=== PATIENT | male | born 1945 | race Caucasian/White ===

== ENCOUNTER 2018-05-08 08:07 | Day surgery (SDC) | payer MEDICARE, BC ==
[2018-05-08] MEDS ORDERED: LIDOCAINE 2% MDV (20MG/ML) 20ML VIAL IV ONE (08:08)
[2018-05-08] MEDS ORDERED: PROPOFOL 10 MG/ML VIAL IV ONE (08:08)
--- NOTE | 2018-05-09 08:50 | Operative Note ---
DATE OF SURGERY: 05/08/18 OPERATION: COLONOSCOPY with cold snare polypectomy x2. PREOPERATIVE DIAGNOSIS: History of polyps. POSTOPERATIVE DIAGNOSES: 1. Transverse colon polyps x2. 2. Fair prep. PROCEDURE: After informed consent was obtained from the patient, he was placed in the left lateral decubitus position in the endoscopy suite, sedated and monitored by the department of anesthesia. Digital rectal exam was unremarkable. A well-lubricated [id number] colonoscope was inserted into the rectum and advanced to the cecum. Preparation quality was fair. The cecum, cecal bulb, ileocecal valve, and appendiceal orifice were unremarkable. The ascending colon was also unremarkable. In the distal transverse colon there were 2 sessile polyps approximately 4 mm in diameter each removed with a cold snare. Minimal bleeding was noted at the site. Remainder of the transverse colon, descending colon, sigmoid colon, and rectum were otherwise unremarkable. J-turn views of the anorectum were unrevealing. The endoscope was straightened, the rectal ampulla deflated, and the endoscope was removed. RECOMMENDATIONS: The patient should resume his medications and diet. I recommend a repeat exam in 3 years based on the prep quality. As always, thank you for allowing me to participate in the healthcare of your patients. CC: CONCHIS Mata
== END 2018-05-08 09:25 | disposition home or self-care (01) ==
LOC: HOP 08:07
PROVIDERS: ATTEND Internal Medicine Gastroenterology
DX: Z12.11 Encounter for screening for malignant neoplasm of colon (principal); Z86.010 Personal history of colon polyps; I10 Essential (primary) hypertension; E78.00 Pure hypercholesterolemia, unspecified; E11.9 Type 2 diabetes mellitus without complications; G62.9 Polyneuropathy, unspecified
CPT/HCPCS: 00812; G0105